=== PATIENT | male | born 1990 | race African-American/Black ===

== ENCOUNTER 2017-05-20 17:51 | Emergency (ER) | payer SELFPAY ==
[~2017-05-20] VITALS: Ht 175.3 cm; Wt 99.0 kg
[2017-05-20 17:54] VITALS: BP 144/86
== END 2017-05-20 18:37 | disposition home or self-care (01) ==
LOC: ED 18:22
DX: L20.9 Atopic dermatitis, unspecified (principal); J45.909 Unspecified asthma, uncomplicated
CPT/HCPCS: 99281